=== PATIENT | male | born 1995 | race Caucasian/White ===

== ENCOUNTER 2016-12-25 00:41 | Emergency (ER) | payer MEDICAID, OTHER ==
[2016-12-25 01:16] VITALS: BP 132/81; PULSE 81; RESP 17; TEMP 98.5; O2SAT 99
--- NOTE | 2016-12-25 01:33 | ED PDOC ---
Lower Extremity Pain/Injury Time Seen by Provider: 12/25/16 01:22 Chief Complaint (Nursing): Lower Extremity Problem/Injury Chief Complaint (Provider): right ankle pain History Per: Patient History/Exam Limitations: no limitations Onset/Duration Of Symptoms: Days (1 week) Current Symptoms Are (Timing): Still Present Additional History Per: Patient Additional Complaint(s): 21 y/o male presents with right ankle pain x 1 week. Patient states he "landed wrong" while playing basketball, noted pain to inner ankle. He states swelling/ bruising improved with ice, but since he was here with his mom who is a patient he decided to get it checked out. Denies numbness/weakness left lower extremity , limitation of movement. Past Medical History Reviewed: Historical Data, Nursing Documentation, Vital Signs Vital Signs: Last Vital Signs Temp 98.5 F 12/25/16 01:13 Pulse 81 12/25/16 01:13 Resp 17 12/25/16 01:13 BP 132/81 12/25/16 01:13 Pulse Ox 99 12/25/16 01:13 - Medical History PMH: No Chronic Diseases - Family History Family History: States: Unknown Family Hx - Living Arrangements Living Arrangements: With Family - Immunization History Hx Tetanus Toxoid Vaccination: Yes Hx Influenza Vaccination: No Hx Pneumococcal Vaccination: No - Home Medications Home Medications: Ambulatory Orders Medication Instructions Recorded No Known Home Med [No Known Home 01/19/14 Med] - Allergies Allergies/Adverse Reactions: Allergies Allergy/AdvReac Type Severity Reaction Status Date / Time No Known Allergies Allergy Unverified 01/19/14 10:34 Review of Systems ROS Statement: Except As Marked, All Systems Reviewed And Found Negative Musculoskeletal: Positive for: Foot Pain (right ankle) Physical Exam - Reviewed Nursing Documentation Reviewed: Yes Vital Signs Reviewed: Yes - Physical Exam Appears: Positive for: Well, Non-toxic, No Acute Distress Pulses-Dorsalis Pedis (L): 2+ Pulses-Dorsalis Pedis (R): 2+ Pulses-Post. Tibialis (L): 2+ Pulses-Post. Tibialis (R): 2+ Extremity: Positive for: Normal ROM, Capillary Refill (<2 sec b/l LE), Swelling (right medial malleolus with mild tenderness to palpation; FROM. Distal NV, motor intact). Negative for: Pedal Edema, Calf Tenderness, Deformity Neurologic/Psych: Positive for: Alert, Oriented. Negative for: Motor/Sensory Deficits - ECG O2 Sat by Pulse Oximetry: 99 - Other Rad xray right ankle X-Ray: Viewed By Me X-Ray Interpretation: no acute findings - Progress ED Course And Treament: xray Patient educated on findings, placed in air cast. Advised RICE, NSAIDs. Follow up podiatry REturn to ED for worsening/concerning symptoms. Disposition - Clinical Impression Clinical Impression: Ankle sprain - Patient ED Disposition Is Patient to be Admitted: No Counseled Patient/Family Regarding: Studies Performed, Diagnosis, Need For Followup - Disposition Referrals: Podiatry Clinic [Outside] Disposition: Routine/Home Disposition Time: 03:12 Condition: GOOD Instructions: Ankle Sprain (ED), RICE Therapy (ED)
--- NOTE | 2016-12-25 11:20 | RAD ---
PROCEDURE: Right Ankle Radiographs. HISTORY: fall, medial pain x 1 week COMPARISON: None available FINDINGS: BONES: No acute displaced fracture. JOINTS: No dislocation. SOFT TISSUES: Soft tissue swelling. No evidence of radiopaque foreign body. OTHER FINDINGS: None. IMPRESSION: Soft tissue swelling. No acute displaced fracture, dislocation, or significant joint effusion identified. If symptoms persist or if there is clinical concern, x-ray follow-up in 7-10 days should be considered.
== END 2016-12-25 03:51 | disposition home or self-care (01) ==
LOC: H.ER 00:41
DX: S93.401A Sprain of unspecified ligament of right ankle, initial encounter (principal); X50.9XXA Other and unspecified overexertion or strenuous movements or postures, initial encounter; Y92.310 Basketball court as the place of occurrence of the external cause

== ENCOUNTER 2017-01-16 23:39 | Emergency (ER) | payer SELFPAY ==
[2017-01-16 23:54] VITALS: BP 134/76; PULSE 80; RESP 16; TEMP 98.8; O2SAT 100
--- NOTE | 2017-01-17 01:11 | ED PDOC ---
HPI: General Adult Time Seen by Provider: 01/17/17 00:01 Chief Complaint (Nursing): ENT Problem Chief Complaint (Provider): throat pain History Per: Patient History/Exam Limitations: no limitations Onset/Duration Of Symptoms: Days (3) Have you had recent travel within the past 21 days to any of the following countries: [place], [place], [place] or [place]?: No Current Symptoms Are (Timing): Still Present Additional Complaint(s): 21yo male presents to the ED with c/o throat pain x 3 days with associated intermittent fever. Patient further reports canker sore in throat and states before he had canker sore he was having some throat pain but pain became worse with canker sore development. Patient states he looked up canker sores on google and found they can be early sign of cancer so he became concerned. Notes lymph node swelling as well. Past Medical History Reviewed: Historical Data, Nursing Documentation, Vital Signs Vital Signs: Last Vital Signs Temp 98.8 F 01/16/17 23:50 Pulse 80 01/16/17 23:50 Resp 16 01/16/17 23:50 BP 134/76 01/16/17 23:50 Pulse Ox 100 01/17/17 03:09 - Medical History PMH: No Chronic Diseases - Surgical History Surgical History: No Surg Hx - Family History Family History: States: No Known Family Hx - Immunization History Hx Tetanus Toxoid Vaccination: Yes Hx Influenza Vaccination: No Hx Pneumococcal Vaccination: No - Home Medications Home Medications: Ambulatory Orders Medication Instructions Recorded Benzocaine/Menthol [Cepacol Sore 1 each MM Q6 #20 lozenge 01/17/17 Throat Lozenge] Ibuprofen [Motrin] 600 mg PO Q8 PRN #20 tab 01/17/17 - Allergies Allergies/Adverse Reactions: Allergies Allergy/AdvReac Type Severity Reaction Status Date / Time eggplant Allergy ANAPHYLAXIS Uncoded 01/16/17 23:50 Review of Systems ROS Statement: Except As Marked, All Systems Reviewed And Found Negative Constitutional: Positive for: Fever ENT: Positive for: Throat Pain, Other (canker sore in throat, lymph node swelling ) Physical Exam - Reviewed Nursing Documentation Reviewed: Yes Vital Signs Reviewed: Yes - Physical Exam Appears: Positive for: Well, No Acute Distress Head Exam: Positive for: ATRAUMATIC, NORMAL INSPECTION, NORMOCEPHALIC Skin: Positive for: Normal Color, Warm, Dry Eye Exam: Positive for: Normal appearance ENT: Positive for: Other (erythema to tonsils b/l, right sided aphthous ulcer on anterior faucial pillar). Negative for: Tonsillar Exudate, Tonsillar Swelling Neck: Positive for: Normal, Painless ROM, Supple Neurologic/Psych: Positive for: Alert, Oriented - Laboratory Results Result Diagrams: 01/17/17 01:14 01/17/17 01:14 - ECG O2 Sat by Pulse Oximetry: 100 Pulse Ox Interpretation: Normal (RA) Medical Decision Making Medical Decision Makin: Impression: tonsillitis DDx: herpetic stomatitis vs. aphthous ulcer vs. strep vs. peritonsillar abscess Plan: CT neck Labs strep swab reassess 0247: CT neck impression: Adenoidal hypertrophy. Mild prominence of the tonsillar tissue. Prominent submandibular, upper jugular lymph nodes, probably reactive, the largest right submandibular lymph node measures up to 1.5 x 1.4 CM. Clinical correlation and followup is recommended as clinically warranted. Scribe Attestation: Documented by Apolinar Kessler acting as a scribe for Thomas Suárez MD. Provider Scribe Attestation: All medical record entries made by the Scribe were at my direction and personally dictated by me. I have reviewed the chart and agree that the record accurately reflects my personal performance of the history, physical exam, medical decision making, and the department course for this patient. I have also personally directed, reviewed, and agree with the discharge instructions and disposition. Disposition - Clinical Impression Clinical Impression: Tonsillitis, Lymphadenopathy - Patient ED Disposition Is Patient to be Admitted: No Doctor Will See Patient In The: Office Counseled Patient/Family Regarding: Studies Performed, Diagnosis, Need For Followup - Disposition Referrals: [facility] [Outside] Disposition: Routine/Home Disposition Time: 03:30 Condition: FAIR Additional Instructions: Follow up with your PCP in 2-3 days. Take motrin for pain. Prescriptions: Benzocaine/Menthol [Cepacol Sore Throat Lozenge] 1 each MM Q6 #20 lozenge Ibuprofen [Motrin] 600 mg PO Q8 PRN #20 tab PRN Reason: Sore Throat Instructions: Tonsillitis (ED), Canker Sores (ED)
[2017-01-17 01:19] LABS: BASO % 0.4 % (0.0-2.0); EOS # 0.1 K/uL (0.0-0.7); EOS % 1.2 % (0.0-4.0); HEMATOCRIT 44.5 % (35.0-51.0); LYMPH # 1.3 K/uL (1.0-4.3); LYMPH % 24.9 % (20.0-40.0); MEAN CELL VOLUME 87.3 fl (80.0-94.0); MEAN CORPUSCULAR HEMOGLOBIN 29.5 pg (27.0-31.0); MEAN CORPUSCULAR HGB CONC 33.8 g/dL (33.0-37.0); MONO # 0.6 K/uL (0.0-0.8); MONO % 11.6 % (0.0-10.0); NEUT # 3.4 K/uL (1.8-7.0); NEUT % 61.9 % (50.0-75.0); NRBC % 0.1 % (0.0-0.0); RED CELL DISTRIBUTION WIDTH 13.3 % (11.5-14.5); WHITE BLOOD COUNT 5.4 K/uL (4.8-10.8)
[2017-01-17 01:45] LABS: BLOOD UREA NITROGEN 15 mg/dl (9-20); CALCIUM 9.6 mg/dL (8.4-10.2); CARBON DIOXIDE 27 mmol/L (22-30); CHLORIDE 99 mmol/L (98-107); GFR AFRICAN-AMERICAN > 60; GLUCOSE,RANDOM 93 mg/dL (75-110); SODIUM 139 mmol/l (132-148)
[2017-01-17] MEDS ORDERED: Iohexol 300 100 ML IJ ONE (01:56)
[2017-01-17] MEDS ORDERED: Sodium Chloride 0.9% 50 ML IV ONE (01:56)
--- NOTE | 2017-01-17 10:03 | CT ---
PROCEDURE: CT NECK WITH CONTRAST HISTORY: neck pain COMPARISON: None TECHNIQUE: CT of the neck with intravenous contrast. Coronal and sagittal reformats generated. Intravenous contrast dose: 80 mL Omnipaque 300 Radiation dose: DLP 548.78 mGy-cm This CT exam was performed using one or more of the following dose reduction techniques: Automated exposure control, adjustment of the mA and/or kV according to patient size, and/or use of iterative reconstruction technique. FINDINGS: NASOPHARYNX: Unremarkable. SUPRAHYOID NECK: Adenoidal tonsillar hypertrophy. [place] and lingual tonsils are unremarkable in appearance. No peritonsillar abscess identified. Parapharyngeal space is clear. INFRAHYOID NECK: Unremarkable larynx, hypopharynx, and supraglottic space. Vocal cords intact. MASS: None. GLANDS: Parotid and submandibular glands unremarkable. Normal size thyroid gland, without nodule. LYMPH NODES: [place] cervical lymph nodes level 1 and 2, up to 12 mm in short axis. No significant cervical lymphadenopathy identified. CERVICAL SPINE: No fracture or focal lesion. VASCULAR STRUCTURES: Unremarkable. OTHER FINDINGS: None. IMPRESSION: Adenoidal tonsillar hypertrophy. [place] and lingual tonsils are unremarkable. No evidence of peritonsillar abscess. No evidence of airway compromise. [place] bilateral cervical nodes without significant lymphadenopathy. Otherwise unremarkable examination. Preliminary interpretation of this examination was reported by [email or web address] at 2:47 a.m. on 01/17/2017. There is concurrence of this report with the preliminary interpretation.
== END 2017-01-17 04:00 | disposition home or self-care (01) ==
LOC: H.ER 23:39
DX: J03.90 Acute tonsillitis, unspecified (principal); J35.2 Hypertrophy of adenoids; M54.2 Cervicalgia
CPT/HCPCS: 70491; 80048; 85025; 87070; 87430; 99282; Q9967